=== PATIENT | male | born 1990 | race Caucasian/White ===

== ENCOUNTER 2019-06-22 12:34 | Emergency (ER) | payer BC ==
[~2019-06-22] VITALS: Ht 175.3 cm; Wt 81.6 kg
[2019-06-22 17:21] VITALS: BP 124/78
== END 2019-06-22 17:22 | disposition home or self-care (01) ==
LOC: ER 12:34
DX: T50.7X1A Poisoning by analeptics and opioid receptor antagonists, accidental (unintentional), initial encounter (principal); F17.290 Nicotine dependence, other tobacco product, uncomplicated; Y92.89 Other specified places as the place of occurrence of the external cause
CPT/HCPCS: 93005; A4663